=== PATIENT | male | born 1950 | race Caucasian/White ===

== ENCOUNTER → 2020-07-28 07:46 | Outpatient (CLI) | payer OTHER, SELFPAY ==
--- NOTE | ~2020-07-28 | US_ITS ---
EXAMINATION: US right upper quadrant DATE: 07/28/2020 08:15 INDICATION: Abnormal liver function tests. TECHNIQUE: Multiple grayscale and Doppler ultrasound images of the abdomen were obtained. COMPARISON: CT abdomen and pelvis 07/26/2019 FINDINGS: The visualized portions of the head, body, and tail of the pancreas are normal. The liver i s normal without focal lesion. There is normal flow in main portal vein. The gallbladder is normal in size. No gallstones or gallbladder wall thickening. There was no sonographic Aldridge sign. The common duct is normal and measures 4 mm. Inferior vena cava is normal. IMPRESSION: 1. No etiology for abnormal liver function tests. Reviewed, dictated and finalized at [facility]. [employer] INTERN
== END ==
PROVIDERS: PCP Emergency Medicine; Visit Provider Internal Medicine Medical Oncology
DX: C91.10 Chronic lymphocytic leukemia of B-cell type not having achieved remission (principal); R74.8 Abnormal levels of other serum enzymes
CPT/HCPCS: 76705

== ENCOUNTER → 2022-08-10 09:22 | Outpatient (CLI) | payer OTHER, SELFPAY ==
--- NOTE | ~2022-08-10 | CT_ITS ---
CT Abdomen and Pelvis with contrast. History: Chronic lymphocytic leukemia. Spiral CT of the abdomen and pelvis was performed after the administration of intravenous contrast. 1 00 cc of Omnipaque 350 was administered intravenously without complication. Dose reduction technique was used on this scan by utilizing automated exposure control and iterative reconstruction technique. The dose-length product (DLP) was 786.22 mGy-cm. COMPARISON: 07/26/2019 Findings: Scans through the lung bases demonstrate stable right middle lobe nodule (axial image 13). The liver, pancreas, gallbladder, adrenals and kidneys are within normal limits. Spleen is mildly enl arged, similar to prior exam. No evidence of aortic aneurysm. Central mesenteric and retroperitoneal lymphadenopathy is markedly improved as compared to prior exam. Largest individual node is probably i n the left para-aortic region measuring approximately 2.7 x 1.4 cm in size (axial image 50).. There is no evidence of bowel obstruction. There is no evidence to suggest acute appendicitis or dive rticulitis. Images through the pelvis were performed. Possible urinary bladder wall thickening versus underdisten tion. Prostate gland is mildly enlarged. No ascites is seen. Impression: Marked interval improvement in extensive central mesenteric and retroperitoneal lymphadenopathy since prior exam, compatible with partial response to therapy. Mild splenomegaly, similar to prior exam. Questionable urinary bladder wall thickening versus underdistention. Correlate for cystitis. Stable right middle lobe pulmonary nodule. Reviewed, dictated and finalized at [facility]. [employer] LETTERING Impression: Marked interval improvement in extensive central mesenteric and retroperitoneal lymphadenopathy since prior exam, compatible with partial response to therapy. Mild splenomegaly, similar to prior exam. Questionable urinary bladder wall thickening versus underdistention. Correlate for cystitis. Stable right middle lobe pulmonary nodule.
[2022-08-10 09:39] LABS: Estimated Glomerular Filt Rate > 60
== END ==
PROVIDERS: PCP Emergency Medicine; Visit Provider Internal Medicine Medical Oncology
DX: C91.10 Chronic lymphocytic leukemia of B-cell type not having achieved remission (principal)
CPT/HCPCS: 74177; Q9967

== ENCOUNTER → 2023-06-28 10:41 | Outpatient (CLI) | payer OTHER, SELFPAY ==
--- NOTE | ~2023-06-28 | CT_ITS ---
EXAMINATION: CT abdomen pelvis w con DATE: 06/28/2023 11:16 INDICATION: Abdominal pain, cramping. Alteration of bowel habits. Diarrhea. History of chronic lympho cytic leukemia TECHNIQUE: Computed tomography (CT) of the abdomen and pelvis was performed with 100 CC Omnipaque 350 intravenous contrast. Automated exposure control and iterative reconstruction technique were employe d. Exam dose: 589.54 mGy-cm total exam DLP. COMPARISON: 08/10/2022 CT abdomen pelvis FINDINGS: Stable partially calcified likely pulmonary granuloma middle lobe since 08/10/2022. Stable scarring in the lateral left lung base, left lower lobe. Small right pleural effusion Bilateral lower thoracic paraspinal soft tissue thickening which I be due to extra medullary hematopo iesis or metastatic disease. There is adenopathy in the portal area, retrocrural region and aortocava l, periaortic and iliac lymphadenopathy in addition to prominent splenomegaly, all increased in sever ity since 08/02/2022. The liver, gallbladder, bile ducts, pancreas, pancreatic duct and adrenal glands are unremarkable. 11.7 mm left renal cyst. The kidneys are otherwise unremarkable. There is extensive calcification but no aneurysm of the abdominal aorta and iliac arteries as well as femoral arteries. Multiple prostate radiopaque seeds. There is moderate diffuse thickening of the urinary bladder wall which may be due to underdistention and/or prostatomegaly. There are numerous diverticula of the sigmoid and descending colon and splenic flexure. There is mild pericolic soft tissue increased density in the sigmoid area of thickening of the sigmoid wall which might represent mild uncomplicated sigmoid diverticulitis. No abscess is identified. No bowel obstruction or intraperitoneal free air is detected. Small free fluid collection in the dependent pelvis. Degenerative change of the thoracic and lumbar spine. IMPRESSION: Increased portal, retrocrural, aortocaval, periaortic, iliac lymphadenopathy and increas ed splenomegaly since 08/10/2022. Bilateral new paraspinal soft tissue thickening which may represent extramedullary hematopoiesis or m etastatic disease Focal mild pericolic soft tissue increased density and wall thickening in the mid sigmoid colon area which may represent mild uncomplicated sigmoid diverticulitis Diverticulosis of left colon Prostatomegaly; prostate radiopaque seeds Reviewed, dictated and finalized at [facility]. Reviewed, dictated and finalized at [facility]. [employer] IMPRESSION: Increased portal, retrocrural, aortocaval, periaortic, iliac lymph adenopathy and increased splenomegaly since 08/10/2022. Bilateral new paraspinal soft tissue thickening which may represent extramedull елена hematopoiesis or metastatic disease Focal mild pericolic soft tissue increased density and wall thickening in the m id sigmoid colon area which may represent mild uncomplicated sigmoid diverticul itis Diverticulosis of left colon Prostatomegaly; prostate radiopaque seeds
[2023-06-28 11:05] LABS: Estimated Glomerular Filt Rate > 60
== END ==
PROVIDERS: PCP Emergency Medicine; Visit Provider Internal Medicine Medical Oncology
DX: C91.10 Chronic lymphocytic leukemia of B-cell type not having achieved remission (principal); R16.1 Splenomegaly, not elsewhere classified; K57.30 Diverticulosis of large intestine without perforation or abscess without bleeding; N42.9 Disorder of prostate, unspecified; R93.5 Abnormal findings on diagnostic imaging of other abdominal regions, including retroperitoneum; R19.4 Change in bowel habit
CPT/HCPCS: 74177; Q9967

== ENCOUNTER 2024-04-19 10:18 | Outpatient (CLI) | payer OTHER, SELFPAY ==
--- NOTE | ~2024-04-19 | CT_ITS ---
Clinical Indication: CLL CT Scan of the Chest, Abdomen, and Pelvis with Contrast: Technique: Contiguous sections were acquired throughout the chest, abdomen, and pelvis after intraven ous administration of 100 cc of Omnipaque 350. Dose reduction technique was used on this scan by miquel laguerre automated exposure control and iterative reconstruction technique. The dose-length product (DL P) was 889.92 mGy-cm. COMPARISON: 06/28/2023 Findings: There is no evidence of any significant mediastinal, hilar or axillary lymphadenopathy. The mediastin al soft tissues and vascular structures appear normal. There is no evidence of pleural or pericardial effusion. Calcified granulomas noted in the right middle lobe. No suspicious pulmonary nodule evident. Mild emp hysema. Diffuse hepatic steatosis present. The spleen, pancreas, gallbladder, adrenals and kidneys are within normal limits. There are atherosclerotic calcifications of the aorta. No lymphadenopathy. No bowel obstruction or bowel wall thickening. There is no evidence to suggest acute appendicitis. Possible mild urinary bladder wall thickening. No pelvic mass. No ascites. Impression: No pathologic lymphadenopathy evident. Possible cystitis. Correlate with urinalysis. Diffuse hepatic steatosis. Mild emphysema. Reviewed, dictated and finalized at [facility]. Impression: No pathologic lymphadenopathy evident. Possible cystitis. Correlate with urinalysis. Diffuse hepatic steatosis. Mild emphysema.
[2024-04-19 10:37] LABS: Estimated Glomerular Filt Rate 54
== END 2024-04-19 10:19 | disposition home or self-care (01) ==
PROVIDERS: PCP Emergency Medicine; Visit Provider Internal Medicine Medical Oncology
DX: C91.10 Chronic lymphocytic leukemia of B-cell type not having achieved remission (principal); K76.0 Fatty (change of) liver, not elsewhere classified; J43.9 Emphysema, unspecified
CPT/HCPCS: 71260; 74177; Q9967